=== PATIENT | male | born 1985 | race Caucasian/White ===

== ENCOUNTER → 2018-09-06 | Outpatient (CLI) | payer OTHER ==
--- NOTE | 2018-09-06 13:45 | REP ---
Left hand series: Four views. History: Injury to the left small finger. Evaluate for fracture dislocation. Findings: Four views of the left hand demonstrate soft tissue swelling and a flexion deformity at the PIP joint of the small finger. No fracture or subluxation is visible. Bones, joints and soft tissues are otherwise unremarkable. Impression: Flexion deformity PIP joint small finger left hand. No fracture visible. Electronically Signed by Selvin Rodriguez MD 09/06/2018 06:17 P
== END ==
LOC: M LRY 10:41
PROVIDERS: ATTEND Nurse Practitioner Family
DX: S69.92XA Unspecified injury of left wrist, hand and finger(s), initial encounter (principal); X58.XXXA Exposure to other specified factors, initial encounter; Y92.9 Unspecified place or not applicable
CPT/HCPCS: 73130; G0463

== ENCOUNTER 2019-04-18 00:09 | Emergency (ER) | payer OTHER ==
[~2019-04-18] VITALS: Ht 177.8 cm; Wt 106.2 kg
[2019-04-18] MEDS ORDERED: DULO1CAP5 PO (00:28)
[2019-04-18] MEDS ORDERED: ONDANSETRON 4MG/2ML VIAL (J2405) IV ONE (00:30)
[2019-04-18] MEDS: MORPHINE 4 MG/ML 1ML VIAL/SYRINGE (J2270) IV PRN ×2 (00:36→01:34)
--- NOTE | 2019-04-18 01:05 | REPVR ---
PROCEDURE INFORMATION: Exam: CT Maxillofacial Without Contrast Exam date and time: 04/18/2019 12:28 AM Clinical history: 33 years old, male; Injury or trauma; Fall; Initial encounter; Concussion /head injury; Loss of consciousness not known TECHNIQUE: Imaging protocol: Computed tomography images of the face without contrast. Radiation optimization: All CT scans at this facility use at least one of these dose optimization techniques: automated exposure control; mA and/or kV adjustment per patient size (includes targeted exams where dose is matched to clinical indication); or iterative reconstruction. COMPARISON: No relevant prior studies available. FINDINGS: Orbits: Orbits are normal. Globes are unremarkable. Sinuses: There is hemorrhage within the frontal sinus. Scattered additional paranasal sinus disease. Bones/joints: Comminuted and depressed fracture involving the anterior wall of the left frontal sinus. Nondisplaced fracture involving posterior wall of the left frontal sinus. There is nondisplaced left frontal bone fracture. Mild displaced fractures involving the left orbital roof and left lamina papyracea. Mild displaced fracture involving the left frontal process of the maxilla. Soft tissues: Left orbital/frontal scalp soft tissue injury. IMPRESSION: Fractures involving the frontal bone, left frontal sinus, left orbit and left frontal process of the maxilla as above. Electronically signed by: Mert Mcginnis On 04/18/2019 01:04:36 AM
--- NOTE | 2019-04-18 01:08 | REPVR ---
PROCEDURE INFORMATION: Exam: CT Head Without Contrast Exam date and time: 04/18/2019 12:28 AM Clinical history: 33 years old, male; Injury or trauma; Fall; Initial encounter; Concussion / head injury TECHNIQUE: Imaging protocol: Computed tomography of the head without contrast. Radiation optimization: All CT scans at this facility use at least one of these dose optimization techniques: automated exposure control; mA and/or kV adjustment per patient size (includes targeted exams where dose is matched to clinical indication); or iterative reconstruction. COMPARISON: No relevant prior studies available. FINDINGS: Brain: Small amount of hemorrhage at the anterior/inferior left frontal lobe, mild subarachnoid hemorrhage versus small hemorrhagic contusion. Ventricles: Normal. No ventriculomegaly. Bones/joints: Nondisplaced fracture involving anterior left frontal bone. Facial bone fractures are better demonstrated on dedicated examination. Sinuses: Paranasal sinus disease is better evaluated on dedicated examination. Mastoid air cells: Visualized mastoid air cells are well aerated. Soft tissues: Left supraorbital/frontal scalp soft tissue injury. IMPRESSION: 1. Small amount of hemorrhage at the anterior/inferior left frontal lobe, mild subarachnoid hemorrhage versus small hemorrhagic contusion. Followup is recommended. 2. Nondisplaced left frontal bone fracture. 3. Facial fractures are better demonstrated on dedicated examination. Electronically signed by: Mert Mcginnis On 04/18/2019 01:07:40 AM
--- NOTE | 2019-04-18 01:15 | REPVR ---
PROCEDURE INFORMATION: Exam: CT Cervical Spine Without Contrast Exam date and time: 04/18/2019 12:28 AM Clinical history: 33 years old, male; Injury or trauma; Fall; Initial encounter; Concussion /head injury TECHNIQUE: Imaging protocol: Computed tomography images of the cervical spine without contrast. Radiation optimization: All CT scans at this facility use at least one of these dose optimization techniques: automated exposure control; mA and/or kV adjustment per patient size (includes targeted exams where dose is matched to clinical indication); or iterative reconstruction. COMPARISON: No relevant prior studies available. FINDINGS: Vertebrae: Mild traumatic anterolisthesis of C6 on C7 measures 2 mm. There is a fracture involving the right articular facet of C7 with minimal displacement. Fracture extends to the base of the right transverse process. Discs/Spinal canal/Neural foramina: Suspect nondisplaced fracture involving the right C4 transverse foramen. No definite significant central canal stenosis. Soft tissues: Unremarkable. Lungs: Lung apices are normal. Pleural space: No visible pneumothorax. IMPRESSION: 1. Traumatic anterolisthesis of C6 on C7 measures 2 mm. 2. Fracture involving the right articular facet of C7 with minimal displacement. Fracture extends to the base of the right transverse process. 3. Suspect nondisplaced fracture involving right C4 transverse foramen. 4. CTA may be considered. THIS REPORT CONTAINS FINDINGS THAT MAY BE CRITICAL TO PATIENT CARE. The findings were verbally communicated via telephone conference with OKSANA COPELAND at 1:10 AM EST on 04/18/2019. The findings were acknowledged and understood. Electronically signed by: Mert Mcginnis On 04/18/2019 01:15:12 AM
[2019-04-18] MEDS ORDERED: NS 1,000 ML IV SCH (01:30)
[2019-04-18] MEDS ORDERED: cefTRIAXone SOD 1 GM in D5W MINI-BAG PLUS 50 ML IV ONE (01:30)
[2019-04-18 01:46] LABS: HEMATOCRIT 43.8 % (42.0-52.0); HEMOGLOBIN 15.9 g/dl (13.5-17.5); MEAN CORPUSCULAR HEMOGLOBIN 32.9 pg (27.0-33.0); MEAN CORPUSCULAR HGB CONC 36.3 g/dl (32.0-36.5); MEAN CORPUSCULAR VOLUME 90.7 fl (80.0-96.0); PLATELET COUNT, AUTOMATED 200 10^3/uL (150-450); RED BLOOD COUNT 4.83 10^6/uL (4.30-6.10); WHITE BLOOD COUNT 13.2 10^3/uL (4.0-10.0)
[2019-04-18 02:00] VITALS: BP 149/69
[2019-04-18 02:10] LABS: BLOOD UREA NITROGEN 15 MG/DL (7-18); CALCIUM LEVEL 8.1 MG/DL (8.5-10.1); CARBON DIOXIDE LEVEL 24 MEQ/L (21-32); CHLORIDE LEVEL 112 MEQ/L (98-107); CREATININE FOR GFR 1.13 MG/DL (0.70-1.30); ETHYL ALCOHOL (ETHANOL) 0.177 % (0.000-0.010); GLOMERULAR FILTRATION RATE > 60.0 (>60); GLUCOSE, FASTING 109 MG/DL (70-100); POTASSIUM SERUM 4.3 MEQ/L (3.5-5.1); SODIUM LEVEL 143 MEQ/L (136-145)
== END 2019-04-18 02:30 | disposition short-term general hospital (02) ==
LOC: M ED 00:09
DX: S02.0XXA Fracture of vault of skull, initial encounter for closed fracture (principal); S02.19XA Other fracture of base of skull, initial encounter for closed fracture; S02.85XA Fracture of orbit, unspecified, initial encounter for closed fracture; S02.40DA Maxillary fracture, left side, initial encounter for closed fracture; S12.300A Unspecified displaced fracture of fourth cervical vertebra, initial encounter for closed fracture; S12.400A Unspecified displaced fracture of fifth cervical vertebra, initial encounter for closed fracture; X58.XXXA Exposure to other specified factors, initial encounter; Y92.89 Other specified places as the place of occurrence of the external cause
CPT/HCPCS: 70450; 70486; 72125; 80048; 85027; 96365; 96375; 96376; 99285; G0480; J0696; J2270; J2405

== ENCOUNTER → 2019-10-10 | Outpatient (CLI) | payer OTHER ==
[~2019-10-10] MED LIST: DULO1CAP5 PO
--- NOTE | 2019-10-10 11:22 | REP ---
REASON FOR EXAM: Neck pain. No trauma. No priors. Only AP and lateral views were obtained with flexion and extension. There is what appears to be a stable 2 to 3 mm sized anterolisthesis of C6 on C7. The disc spaces are symmetric and well maintained. The facet joints are well aligned bilaterally. Flexion and extension is not limited radiographically. IMPRESSION: Stable appearing anterolisthesis as described above, however, this needs to be correlated clinically. Electronically Signed by Jesus Alberto Gomez DO 10/10/2019 11:37 A
--- NOTE | 2019-10-10 11:42 | REP ---
CT STUDY OF THE CERVICAL SPINE WITHOUT CONTRAST: HISTORY: Spondylolisthesis. Other closed nondisplaced fracture of the 7th cervical vertebra. Anterolisthesis of C6 on C7 due to trauma. Status post right sided C4 laminar fracture and right-sided C7 facet fracture. Comparison CT study is from April 18, 2019. TECHNIQUE: Helical scanning is acquired. 2 mm axial slices are generated. Coronal and sagittal MPR images are generated. CT FINDINGS: On sagittal images in the midline, there is still 2 mm of anterolisthesis of C6 vertebral body relative to the C7 vertebral body. The C6-7 disc space is narrowed. There is some posterior osteophytic ridging at the superior margin of the C6 vertebral body posteriorly. There is discogenic spurring at C5-6 along with some disc space narrowing as well. This is most pronounced on the right where there is uncovertebral spurring and foraminal narrowing. There is diffuse disc bulging at C6-7. The right sided facet fracture at C7 has healed and is seen to be united with slight hypertrophy. There is no evidence of a laminar fracture at C4 or additional fracture elsewhere in the cervical spine. No other malalignment is seen. Disc spaces are otherwise preserved. Facets are normally aligned. IMPRESSION: Previously noted facet fracture on the right at C7 has healed. There are degenerative disc changes at the C5-6 and C6-7. There is a persistent 2 mm anterolisthesis of C6 on C7, unchanged from the comparison CT study April 18, 2019. Uncovertebral spurring and foraminal narrowing on the right at C5-6. Electronically Signed by Selvin Rodriguez MD 10/10/2019 03:26 P
== END ==
LOC: M RAD 10:32
PROVIDERS: ATTEND Orthopaedic Surgery
DX: S12.691A Other nondisplaced fracture of seventh cervical vertebra, initial encounter for closed fracture (principal); X58.XXXA Exposure to other specified factors, initial encounter; Y92.89 Other specified places as the place of occurrence of the external cause; Z87.81 Personal history of (healed) traumatic fracture; M43.10 Spondylolisthesis, site unspecified